=== PATIENT | female | born 1995 | race Caucasian/White ===

== ENCOUNTER 2018-09-09 11:53 | Emergency (ER) | payer OTHER ==
[~2018-09-09] VITALS: Ht 157.5 cm; Wt 54.4 kg
[2018-09-09] MEDS ORDERED: ABILIFY2 MG PO (12:29)
[2018-09-09] MEDS ORDERED: PROZAC40 MG PO (12:29)
== END 2018-09-09 16:00 | disposition home or self-care (01) ==
LOC: ER 11:53
DX: K29.70 Gastritis, unspecified, without bleeding (principal)